=== PATIENT | female | born 1985 | race Two or more races ===

== ENCOUNTER 2016-12-25 16:05 | Inpatient (IN) | payer SELFPAY ==
[2016-12-25] VITALS (9 sets, daily range): BP systolic 107–122; BP diastolic 63–79
--- NOTE | 2016-12-25 16:15 | PHYS DOC ---
Adult General Chief Complaint Chief Complaint: VAGINAL BLEEDING HPI HPI Patient is a 31 year old female who presents with vaginal bleeding and . She states she's been 5 times and has 3 babies at home. She' s had one miscarriage. She states she's was diagnosed with several months ago per self and vitamins. She has an appointment at [facility] - [place], [place] but has not yet seen them for her . She states about one hour prior to arrival she started having vaginal bleeding. She also is having cramping. She denies any past medical history, her last sexual intercourse was approximately 2 weeks ago. She denies being on any medications, she denies any trauma to her abdominal area. She is unsure what her blood type is. Review of Systems Review of Systems Constitutional: Denies fever or chills [] Eyes: Denies change in visual acuity, redness, or eye pain [] HENT: Denies nasal congestion or sore throat [] Respiratory: Denies cough or shortness of breath [] Cardiovascular: No additional information not addressed in HPI [] GI: Denies abdominal pain, nausea, vomiting, bloody stools or diarrhea [] : Denies dysuria or hematuria [] Musculoskeletal: Denies back pain or joint pain [] Integument: Denies rash or skin lesions [] Neurologic: Denies headache, focal weakness or sensory changes [] Endocrine: Denies polyuria or polydipsia [] Current Medications Current Medications Allergies Allergies Allergies Coded Allergies Type Severity Reaction Last Updated Verified No Known Drug Allergies 12/25/16 No Physical Exam Physical Exam Constitutional: Well developed, well nourished, no acute distress, non-toxic appearance. [] HENT: Normocephalic, atraumatic, bilateral external ears normal, oropharynx moist, no oral exudates, nose normal. [] Eyes: PERRLA, EOMI, conjunctiva normal, no discharge. [] Neck: Normal range of motion, no tenderness, supple, no stridor. [] Cardiovascular:Heart rate regular rhythm, no murmur [] Lungs & Thorax: Bilateral breath sounds clear to auscultation [] Abdomen/pelvic exam: Bowel sounds normal, soft, no tenderness, no masses, no pulsatile masses. Pelvic exam shows normal external genitalia, bright red blood in the vault with tissue. Skin: Warm, dry, no erythema, no rash. [] Back: No tenderness, no CVA tenderness. [] Extremities: No tenderness, no cyanosis, no clubbing, ROM intact, no edema. [] Neurologic: Alert and oriented X 3, normal motor function, normal sensory function, no focal deficits noted. [] Psychologic: Affect normal, judgement normal, mood normal. [] Current Patient Data Vital Signs Vital Signs Date Time Temp Pulse Resp B/P (MAP) Pulse Ox O2 Delivery O2 Flow Rate FiO2 12/25/16 17:12 54 83/54 (64) 98 Room Air 12/25/16 16:18 98.4 18 98.4 Lab Values Laboratory Tests Test 12/25/16 16:50 White Blood Count 9.8 x10^3/uL (4.0-11.0) Red Blood Count 4.56 x10^6/uL (3.50-5.40) Hemoglobin 10.5 g/dL (12.0-15.5) L Hematocrit 32.2 % (36.0-47.0) L Mean Corpuscular Volume 71 fL (79-100) L Mean Corpuscular Hemoglobin 23 pg (25-35) L Mean Corpuscular Hemoglobin Concent 33 g/dL (31-37) Red Cell Distribution Width 16.9 % (11.5-14.5) H Platelet Count 248 x10^3/uL (140-400) Neutrophils (%) (Auto) 63 % (31-73) Lymphocytes (%) (Auto) 28 % (24-48) Monocytes (%) (Auto) 6 % (0-9) Eosinophils (%) (Auto) 2 % (0-3) Basophils (%) (Auto) 1 % (0-3) Neutrophils # (Auto) 6.1 x10^3uL (1.8-7.7) Lymphocytes # (Auto) 2.8 x10^3/uL (1.0-4.8) Monocytes # (Auto) 0.6 x10^3/uL (0.0-1.1) Eosinophils # (Auto) 0.2 x10^3/uL (0.0-0.7) Basophils # (Auto) 0.1 x10^3/uL (0.0-0.2) Platelet Estimate Adequate (ADEQUATE) Polychromasia Slight Hypochromasia Slight Anisocytosis Slight Microcytosis Mod Sodium Level 140 mmol/L (136-145) Potassium Level 3.5 mmol/L (3.5-5.1) Chloride Level 106 mmol/L (98-107) Carbon Dioxide Level 22 mmol/L (21-32) Anion Gap 12 (6-14) Blood Urea Nitrogen 11 mg/dL (7-20) Creatinine 0.6 mg/dL (0.6-1.0) Estimated GFR (Cockcroft-Gault) 115.9 BUN/Creatinine Ratio 18 (6-20) Glucose Level 91 mg/dL (70-99) Calcium Level 8.6 mg/dL (8.5-10.1) Total Bilirubin 0.2 mg/dL (0.2-1.0) Aspartate Amino Transferase (AST) 15 U/L (15-37) Alanine Aminotransferase (ALT) 15 U/L (14-59) Alkaline Phosphatase 121 U/L (46-116) H Total Protein 7.0 g/dL (6.4-8.2) Albumin 3.0 g/dL (3.4-5.0) L Albumin/Globulin Ratio 0.8 (1.0-1.7) L Laboratory Tests 12/25/16 16:50 Laboratory Tests 12/25/16 16:50 Microbiology 12/25/16 Wet Prep - Final, Complete Laboratory Tests Test 12/25/16 16:50 White Blood Count 9.8 x10^3/uL (4.0-11.0) Red Blood Count 4.56 x10^6/uL (3.50-5.40) Hemoglobin 10.5 g/dL (12.0-15.5) L Hematocrit 32.2 % (36.0-47.0) L Mean Corpuscular Volume 71 fL (79-100) L Mean Corpuscular Hemoglobin 23 pg (25-35) L Mean Corpuscular Hemoglobin Concent 33 g/dL (31-37) Red Cell Distribution Width 16.9 % (11.5-14.5) H Platelet Count 248 x10^3/uL (140-400) Neutrophils (%) (Auto) 63 % (31-73) Lymphocytes (%) (Auto) 28 % (24-48) Monocytes (%) (Auto) 6 % (0-9) Eosinophils (%) (Auto) 2 % (0-3) Basophils (%) (Auto) 1 % (0-3) Neutrophils # (Auto) 6.1 x10^3uL (1.8-7.7) Lymphocytes # (Auto) 2.8 x10^3/uL (1.0-4.8) Monocytes # (Auto) 0.6 x10^3/uL (0.0-1.1) Eosinophils # (Auto) 0.2 x10^3/uL (0.0-0.7) Basophils # (Auto) 0.1 x10^3/uL (0.0-0.2) Platelet Estimate Adequate (ADEQUATE) Polychromasia Slight Hypochromasia Slight Anisocytosis Slight Microcytosis Mod Laboratory Tests 12/25/16 16:50 Microbiology 12/25/16 Wet Prep - Final, Complete EKG EKG [] Radiology/Procedures Radiology/Procedures [] Impressions: Threatened miscarriage Course & Med Decision Making Course & Med Decision Making Pertinent Labs and Imaging studies reviewed. (See chart for details) There is significant bleeding from her vagina and during exam shows what I believe tissue in the vault. I placed an ultrasound on her abdomen and I do not appreciate any activity spoke with Dr. Arechiga, who states she's on her way in. Patient's vitals have changed where her systolic is now 80/60 and she is diaphoretic. 2 units of blood have been ordered. 1 L of normal saline he is being infused currently. Pt is being admitted to OB at this time. I have explained to the patient that there is no cardiac activity noted on ultrasound and she is miscarrying and will likely need a D&C. Formal ultrasound is still pending at this time. Patient is being admitted upstairs and has a bed waiting for her. After 1 L of normal saline she does not feel lightheaded or dizzy or diaphoretic at this time. Her systolic blood pressure has improved back to 112. A second liter has been ordered of normal saline. Dragon Disclaimer Dragon Disclaimer This electronic medical record was generated, in whole or in part, using a voice recognition dictation system. Departure Departure Impression: Primary Impression: Threatened miscarriage Disposition: 09 ADMITTED INPATIENT Admitting Physician: Other Condition: GUARDED EDOUARD GUAN MD Dec 25, 2016 16:15
[2016-12-25 16:58] LABS: BASO # 0.1 x10^3/uL (0.0-0.2); BASO % 1 % (0-3); EOS % 2 % (0-3); HEMATOCRIT 32.2 % (36.0-47.0); HEMOGLOBIN 10.5 g/dL (12.0-15.5); LYMPH # 2.8 x10^3/uL (1.0-4.8); LYMPH % 28 % (24-48); MEAN CORPUSCULAR HEMOGLOBIN 23 pg (25-35); MEAN CORPUSCULAR HGB CONC 33 g/dL (31-37); MEAN CORPUSCULAR VOLUME 71 fL (79-100); MONO % 6 % (0-9); NEUT % 63 % (31-73); PLATELET COUNT 248 x10^3/uL (140-400); RED BLOOD COUNT 4.56 x10^6/uL (3.50-5.40); RED CELL DISTRIBUTION WIDTH 16.9 % (11.5-14.5); WHITE BLOOD COUNT 9.8 x10^3/uL (4.0-11.0)
[2016-12-25 17:17] LABS: ANISOCYTOSIS SLIGHT; HYPOCHROMIA SLIGHT; MICROCYTOSIS MOD; PLT ESTIMATE ADEQUATE (ADEQUATE); POLYCHROMASIA SLIGHT
[2016-12-25 17:21] LABS: CALCIUM 8.6 mg/dL (8.5-10.1); CREATININE 0.6 mg/dL (0.6-1.0); GFR 115.9; POTASSIUM 3.5 mmol/L (3.5-5.1)
[2016-12-25 17:26] LABS: ALBUMIN/GLOBULIN RATIO 0.8 (1.0-1.7); TOTAL BILIRUBIN 0.2 mg/dL (0.2-1.0)
[2016-12-25] MEDS ORDERED: ONDANSETRON PF 4 MG/2 ML VIAL. IV PRN ×2 (17:30→20:00)
[2016-12-25] MEDS: fentaNYL PF VIAL 100 MCG/2 ML VIAL IV PRN ×3 (17:33→18:43)
--- NOTE | 2016-12-25 17:50 | RAD ---
Obstetric pelvic ultrasound December 25, 2016 INDICATION: Vaginal bleeding COMPARISON: None available TECHNIQUE: Sonographic imaging of the pelvis was obtained utilizing transabdominal imaging. FINDINGS: The uterus measures 15 x 11 x 13 cm (length by with the AP dimensions). No myometrial masses are identified. A gestational sac is identified with an embryo. [place]-rump length measures 7.4 cm compatible with a gestational age of 13 weeks and 3 days. Cardiac motion is not identified. Right ovary is obscured by bowel gas. Left ovary is obscured by bowel gas. No significant free fluid is identified within the pelvis. IMPRESSION: [place]-rump length is compatible with a gestational age of 13 weeks and 3 days. However, no cardiac motion is identified compatible with failed . Critical results were discussed with Dr. Vick at 5:45 PM on 12/25/[address] Odell. Electronically signed by: Iman Odell MD (12/25/2016 5:47 PM) [facility]
[2016-12-25] MEDS ORDERED: OXYTOCIN 10 UNIT/ML VIAL. ONE ×5 (17:54→19:43)
[2016-12-25] MEDS ORDERED: miSOPROStol 200MCG TAB 200 MCG TABLET ONE (17:54)
[2016-12-25] MEDS ORDERED: IV NORMAL SALINE 1000ML BAG 1,000 ML IV ONE ×3 (18:00→20:00)
[2016-12-25] MEDS ORDERED: SEVOFLURANE 31 TO 60 MINUTES. IH ONE (18:35)
[2016-12-25] MEDS ORDERED: ROCURONIUM 100 MG/10 ML VIAL. ONE (18:36)
[2016-12-25] MEDS ORDERED: fentaNYL PF VIAL 100 MCG/2 ML VIAL ONE ×2 (18:36→19:35)
[2016-12-25] MEDS ORDERED: SUCCINYLCHOLINE 200 MG/10 ML VIAL. ONE (18:36)
[2016-12-25] MEDS ORDERED: PROPOFOL 20 ML IV ONE (18:37)
[2016-12-25] MEDS ORDERED: DEXAMETHASONE SOD PHOS 20 MG/5 ML VIAL. ONE (18:37)
[2016-12-25] MEDS ORDERED: ONDANSETRON PF 4 MG/2 ML VIAL. ONE (18:37)
[2016-12-25] MEDS ORDERED: PHENYLEPHRINE in 0.9% NACL PF 1 MG/10 ML DISP.SYRIN. IV ONE (18:37)
[2016-12-25] MEDS ORDERED: LIDOCAINE 2% PF Vial for OR 5 ML VIAL. ONE (18:37)
[2016-12-25] MEDS ORDERED: miSOPROStol 200MCG TAB 200 MCG TABLET VG ONE (19:20)
--- NOTE | 2016-12-25 19:59 | PDOC ---
SUBJECTIVE Subjective 31 yrs old lady [id number] Lmp 08/25/16? Came to ER with heavy Bleeding OBJECTIVE Objective 13 weeks by Sonogram Has abdominal cramps Passing Clots Vital Signs Vital Signs Date Time Temp Pulse Resp B/P (MAP) Pulse Ox O2 Delivery O2 Flow Rate FiO2 12/25/16 18:54 80 111/64 (80) 98 Room Air 12/25/16 18:39 74 115/63 (80) 100 Room Air 12/25/16 18:24 74 108/56 (73) 100 Room Air 12/25/16 18:09 84 108/66 (80) 100 Room Air 12/25/16 17:54 80 112/66 (81) 100 Room Air 12/25/16 17:39 74 117/69 (85) 98 Room Air 12/25/16 17:24 78 112/79 (90) 98 Room Air 12/25/16 17:12 54 83/54 (64) 98 Room Air 12/25/16 17:05 56 86/51 (63) 100 12/25/16 16:53 92 125/82 (96) 96 Room Air 12/25/16 16:18 98.4 74 18 121/73 (89) 96 Room Air 98.4 I & O Intake and Output 12/26/16 07:00 Intake Total 1000 ml Balance 1000 ml Intake IV Total 1000 ml PHYSICAL EXAM Physical Exam Pelvic exam shows Uterus 12 weeks size Tenderness in pelvis Bleeding heavy ASSESSMENT/PLAN Assessment/Plan Miscarriage Passing lot of clots Patient needs emergency D&C Suction Curettage Under GA D&C Suction Curettage done EBL 1200 CC 2 units of BT given. Patient is stable Problems: COMMENT Lab Laboratory Tests Test 12/25/16 16:50 White Blood Count 9.8 x10^3/uL (4.0-11.0) Red Blood Count 4.56 x10^6/uL (3.50-5.40) Hemoglobin 10.5 g/dL (12.0-15.5) Hematocrit 32.2 % (36.0-47.0) Mean Corpuscular Volume 71 fL (79-100) Mean Corpuscular Hemoglobin 23 pg (25-35) Mean Corpuscular Hemoglobin Concent 33 g/dL (31-37) Red Cell Distribution Width 16.9 % (11.5-14.5) Platelet Count 248 x10^3/uL (140-400) Neutrophils (%) (Auto) 63 % (31-73) Lymphocytes (%) (Auto) 28 % (24-48) Monocytes (%) (Auto) 6 % (0-9) Eosinophils (%) (Auto) 2 % (0-3) Basophils (%) (Auto) 1 % (0-3) Neutrophils # (Auto) 6.1 x10^3uL (1.8-7.7) Lymphocytes # (Auto) 2.8 x10^3/uL (1.0-4.8) Monocytes # (Auto) 0.6 x10^3/uL (0.0-1.1) Eosinophils # (Auto) 0.2 x10^3/uL (0.0-0.7) Basophils # (Auto) 0.1 x10^3/uL (0.0-0.2) Platelet Estimate Adequate (ADEQUATE) Polychromasia Slight Hypochromasia Slight Anisocytosis Slight Microcytosis Mod Sodium Level 140 mmol/L (136-145) Potassium Level 3.5 mmol/L (3.5-5.1) Chloride Level 106 mmol/L (98-107) Carbon Dioxide Level 22 mmol/L (21-32) Anion Gap 12 (6-14) Blood Urea Nitrogen 11 mg/dL (7-20) Creatinine 0.6 mg/dL (0.6-1.0) Estimated GFR (Cockcroft-Gault) 115.9 BUN/Creatinine Ratio 18 (6-20) Glucose Level 91 mg/dL (70-99) Calcium Level 8.6 mg/dL (8.5-10.1) Total Bilirubin 0.2 mg/dL (0.2-1.0) Aspartate Amino Transf (AST/SGOT) 15 U/L (15-37) Alanine Aminotransferase (ALT/SGPT) 15 U/L (14-59) Alkaline Phosphatase 121 U/L (46-116) Total Protein 7.0 g/dL (6.4-8.2) Albumin 3.0 g/dL (3.4-5.0) Albumin/Globulin Ratio 0.8 (1.0-1.7) OJ DUARTE MD Dec 25, 2016 19:59
--- NOTE | 2016-12-25 20:18 | OP ---
DATE OF SURGERY: PREOPERATIVE DIAGNOSIS: Incomplete . POSTOPERATIVE DIAGNOSIS: Incomplete . OPERATION PERFORMED: D and C, suction curettage. DESCRIPTION OF PROCEDURE: The patient was taken to the operating room. Under general anesthesia, she was placed in a dorsal lithotomy position. Perineum was prepped and draped in the usual manner. Weighted speculum inserted in the posterior vaginal wall and anterior lip of the cervix could not be seen because the vault and the vagina was filled with blood clots which was removed and the tissues came out and then a ring forceps was used to pull the placenta and then the anterior lip of the cervix is visualized and tenaculum is placed on the anterior lip of the cervix and using #9 suction tip cannula, suctioning of the uterus was done and a medium-sized curette is used to curet the endometrial cavity as well. All the curettings obtained are subjected for pathological examination. She did receive 20 units of Pitocin IV bottle of fluids during the time of the D and C and at the end of the D and C, the speculum is removed, tenaculum is removed. Cytotec inserted into the cervical area for hemostasis and the patient was sent to the recovery room in good condition. She did receive 1 unit of blood during the time of the surgery and another unit will be transfused in the recovery room. The patient is stable at this time. Estimated blood loss about 1200 mL during the time of the surgery. The sponge, needle, instrument count were correct at the end of the procedure. OJ DUARTE MD DR: JAIRON/jayy JOB#: [id number] / [id number]
[2016-12-25] MEDS ORDERED: ONDANSETRON ODT 4 MG TAB.RAPDIS. PO ONE (20:30)
[2016-12-26] VITALS: BP 108/74
[2016-12-26] MEDS: oxyCODONE/APAP 5/325 1 TAB TABLET PO PRN ×2 (00:26→08:29)
[2016-12-26] MEDS: IV DEXTROSE 5%-LACT RINGERS 1,000 ML IV SCH ×2 (03:09→07:00)
[2016-12-26 04:07] LABS: HEMATOCRIT 30.6 % (36.0-47.0); RED BLOOD COUNT 4.07 x10^6/uL (3.50-5.40); RED CELL DISTRIBUTION WIDTH 19.8 % (11.5-14.5); WHITE BLOOD COUNT 11.1 x10^3/uL (4.0-11.0)
[2016-12-26 04:30] VITALS: BP 92/55
[2016-12-26 08:20] VITALS: BP 101/64
[2016-12-26 12:25] VITALS: BP 107/65
--- NOTE | 2016-12-26 12:54 | PDOC ---
SUBJECTIVE Subjective Patient Feeling better OBJECTIVE Objective Abdomen soft Uterus firm Vital Signs Vital Signs Date Time Temp Pulse Resp B/P (MAP) Pulse Ox O2 Delivery O2 Flow Rate FiO2 12/26/16 08:29 18 99 Room Air 12/26/16 08:20 Mask 10.0 12/26/16 08:20 98.1 62 18 101/64 (76) 99 Room Air 98.1 12/26/16 04:30 98.4 58 16 92/55 (67) 97 Room Air 98.4 12/26/16 00:26 16 Room Air 12/26/16 00:00 98.4 81 16 108/74 (85) 98 Room Air 98.4 12/25/16 22:45 98.6 78 16 107/76 (86) 97 Room Air 98.6 12/25/16 22:20 98.8 76 16 109/77 98.8 12/25/16 22:15 76 109/77 (88) 12/25/16 21:45 77 109/79 (89) 12/25/16 21:30 73 109/77 (88) 12/25/16 21:30 98.6 73 16 109/77 98.6 12/25/16 21:15 73 118/72 (87) 12/25/16 21:00 98.8 74 16 122/73 (89) 97 Room Air 98.8 12/25/16 20:45 97.2 70 20 119/71 97.2 12/25/16 20:45 73 20 119/71 98 Room Air 12/25/16 20:30 97.2 80 20 116/63 100 Room Air 97.2 12/25/16 20:25 97.2 78 16 116/63 97.2 12/25/16 20:10 78 20 125/65 99 Room Air 12/25/16 19:56 97.3 75 20 120/69 100 Simple Mask 10 97.3 12/25/16 19:56 Mask 10 12/25/16 18:54 80 111/64 (80) 98 Room Air 12/25/16 18:39 74 115/63 (80) 100 Room Air 12/25/16 18:24 74 108/56 (73) 100 Room Air 12/25/16 18:09 84 108/66 (80) 100 Room Air 12/25/16 17:54 80 112/66 (81) 100 Room Air 12/25/16 17:39 74 117/69 (85) 98 Room Air 12/25/16 17:24 78 112/79 (90) 98 Room Air 12/25/16 17:12 54 83/54 (64) 98 Room Air 12/25/16 17:05 56 86/51 (63) 100 12/25/16 16:53 92 125/82 (96) 96 Room Air 12/25/16 16:18 98.4 74 18 121/73 (89) 96 Room Air 98.4 I & O Intake and Output 12/27/16 07:00 Intake Total 520 ml Balance 520 ml Intake Oral 420 ml IV Total 100 ml PHYSICAL EXAM Physical Exam Vital signs stable Not much vaginal bleeding ASSESSMENT/PLAN Assessment/Plan Patient to go home today RTO in 2 weeks Problems: COMMENT Lab Laboratory Tests Test 12/25/16 16:50 12/26/16 03:00 White Blood Count 9.8 x10^3/uL (4.0-11.0) 11.1 x10^3/uL (4.0-11.0) Red Blood Count 4.56 x10^6/uL (3.50-5.40) 4.07 x10^6/uL (3.50-5.40) Hemoglobin 10.5 g/dL (12.0-15.5) 10.0 g/dL (12.0-15.5) Hematocrit 32.2 % (36.0-47.0) 30.6 % (36.0-47.0) Mean Corpuscular Volume 71 fL (79-100) 75 fL (79-100) Mean Corpuscular Hemoglobin 23 pg (25-35) 25 pg (25-35) Mean Corpuscular Hemoglobin Concent 33 g/dL (31-37) 33 g/dL (31-37) Red Cell Distribution Width 16.9 % (11.5-14.5) 19.8 % (11.5-14.5) Platelet Count 248 x10^3/uL (140-400) 193 x10^3/uL (140-400) Neutrophils (%) (Auto) 63 % (31-73) Lymphocytes (%) (Auto) 28 % (24-48) Monocytes (%) (Auto) 6 % (0-9) Eosinophils (%) (Auto) 2 % (0-3) Basophils (%) (Auto) 1 % (0-3) Neutrophils # (Auto) 6.1 x10^3uL (1.8-7.7) Lymphocytes # (Auto) 2.8 x10^3/uL (1.0-4.8) Monocytes # (Auto) 0.6 x10^3/uL (0.0-1.1) Eosinophils # (Auto) 0.2 x10^3/uL (0.0-0.7) Basophils # (Auto) 0.1 x10^3/uL (0.0-0.2) Platelet Estimate Adequate (ADEQUATE) Polychromasia Slight Hypochromasia Slight Anisocytosis Slight Microcytosis Mod Sodium Level 140 mmol/L (136-145) Potassium Level 3.5 mmol/L (3.5-5.1) Chloride Level 106 mmol/L (98-107) Carbon Dioxide Level 22 mmol/L (21-32) Anion Gap 12 (6-14) Blood Urea Nitrogen 11 mg/dL (7-20) Creatinine 0.6 mg/dL (0.6-1.0) Estimated GFR (Cockcroft-Gault) 115.9 BUN/Creatinine Ratio 18 (6-20) Glucose Level 91 mg/dL (70-99) Calcium Level 8.6 mg/dL (8.5-10.1) Total Bilirubin 0.2 mg/dL (0.2-1.0) Aspartate Amino Transf (AST/SGOT) 15 U/L (15-37) Alanine Aminotransferase (ALT/SGPT) 15 U/L (14-59) Alkaline Phosphatase 121 U/L (46-116) Total Protein 7.0 g/dL (6.4-8.2) Albumin 3.0 g/dL (3.4-5.0) Albumin/Globulin Ratio 0.8 (1.0-1.7) OJ DUARTE MD Dec 26, 2016 12:53
--- NOTE | 2016-12-28 13:40 | PATHOLOGY ---
PATHOLOGY REPORT * * * * * * * * FINAL DIAGNOSIS: Uterine contents, suction D and C: - Products of conception, comprised avascular and immature chorionic villi showing villous fibrosis, placental membranous tissue, decidual tissue showing focal necrosis, hemorrhage, and acute inflammation, and macerated 58 gram male fetus. (JPM:arash; 12/28/2016) REPORT ELECTRONICALLY SIGNED BY: Cruz Lange M.D. DATE/TIME: 12/28/2016 13:39 * * * * * * * * GROSS PATHOLOGY: Received in formalin labeled "[place], products of conception," is a 12.5 x 7.2 x 1.6 cm aggregate of abundant blood clot admixed with spongiform, pink-moreno tissue. Vesicular structures are absent. Closer On tissue is submitted in cassette A1 through A3. There is a large amount of blood coagulum present measuring 15.8 x 14.9 x 3.2 cm in aggregate dimensions. Sections of the blood coagulum are not submitted. Also received within the specimen container is a 58 g fetus displaying the following measurements: [place]-rump: 10.1 cm [place]-heel: 14.8 cm Foot length: 1.5 cm Hand length: 1.3 cm Head circumference: 8.1 cm The mouth and anus are probe patent. Ten fingers and 10 toes are present. The intereye distance is 0.9 cm. The ears are symmetrical. There is a slight amount of skin slippage on the head. The attached umbilical cord is dusky ramirez-moreno in appearance with moderate helical twisting measuring 17.3 cm in length by 0.5 cm in diameter. The fetus is male. Gross photographs are taken. (CAA; 12/27/2016) INITIAL CPT CODE(S): A; 61948 Professional services performed by [facility] at [facility] [address] [place] [address] Technical services performed by [facility] at [address] [place] [address], [address], [place] [address]. SPECIMEN(S) RECEIVED: A.Products of conception CLINICAL HISTORY: Vaginal bleeding in PATIENT: [place]NADO [place]ILL /AGE: 1202/25/1985 (Age: 31) PATIENT #: [id number] ALT CASE #: SPECIMEN COLLECTION DATE: 12/25/2016 SPECIMEN RECEIVED DATE: 12/26/2016 [facility] - [address] [address] - PHONE: [phone] * * * END OF REPORT * * *
== END 2016-12-26 14:20 | disposition home or self-care (01) | DRG 770 ==
LOC: ER 16:05 → 3 NORTH 17:20
PROVIDERS: ADMIT Obstetrics & Gynecology; ATTEND Obstetrics & Gynecology
PROC: 30233N1 Transfusion of Nonautologous Red Blood Cells into Peripheral Vein, Percutaneous Approach (ICD-10-PCS; 2016-12-25)
PROC: 10D18ZZ Extraction of Products of Conception, Retained, Via Natural or Artificial Opening Endoscopic (ICD-10-PCS; principal; 2016-12-25 18:38)
DX: O03.4 Incomplete spontaneous abortion without complication (principal); O20.0 Threatened abortion; Z3A.13 13 weeks gestation of pregnancy
CPT/HCPCS: 36415; 76801; 80053; 85025; 85027; 86850; 86900; 86901; 86920; 87491; 87591; 88305; 96361; 96374; 96375; 96376; J0330; J0690; J1100; J2370; J2405; J2590; J2704; J3010; J7030; P9016; Q0111; 99285-25; J2001